=== PATIENT | female | born 1940 | race Caucasian/White ===

== ENCOUNTER → 2024-03-11 16:34 | Outpatient (REF) | payer OTHER, SELFPAY | LOC: RAD 16:34 | PROVIDERS: ATTENDING PHYSICIAN Internal Medicine Geriatric Medicine | DX: Z99.89 Dependence on other enabling machines and devices (principal); M54.50 Low back pain, unspecified; S72.001 Fracture of unspecified part of neck of right femur; K21.9 Gastro-esophageal reflux disease without esophagitis; E55.9 Vitamin D deficiency, unspecified; R07.9 Chest pain, unspecified; E78.2 Mixed hyperlipidemia; D64.9 Anemia, unspecified; R79.89 Other specified abnormal findings of blood chemistry; M81.0 Age-related osteoporosis without current pathological fracture; Z13.89 Encounter for screening for other disorder; I35.8 Other nonrheumatic aortic valve disorders; E03.9 Hypothyroidism, unspecified; M25.551 Pain in right hip | CPT/HCPCS: 72100; 72202; 73502; 73564; 73565 ==

== ENCOUNTER → 2024-03-22 16:23 | Outpatient (REF) | payer OTHER, SELFPAY | LOC: RAD 16:23 | PROVIDERS: ATTENDING PHYSICIAN Nurse Practitioner Family; FAMILY PHYSICIAN Internal Medicine Geriatric Medicine | DX: M79.601 Pain in right arm (principal); M25.511 Pain in right shoulder | CPT/HCPCS: 73030; 73060 ==